=== PATIENT | female | born 1940 | race Caucasian/White ===

== ENCOUNTER 2019-03-14 01:51 | Emergency (ER) | payer MEDICARE, OTHER ==
--- NOTE | 2019-03-14 03:11 | EDM.PDOC ---
ED HPI GENERAL MEDICAL PROBLEM - General Chief Complaint: General Stated Complaint: BLOODY NOSE Time Seen by Provider: 03/14/19 02:50 Source of Information: Reports: Patient, Family, RN History Limitations: Reports: No Limitations - History of Present Illness INITIAL COMMENTS - FREE TEXT/NARRATIVE: 78 yr female presents to ER with nasal bleeding. 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 She has been using kleenex for packing to nares. States she hasn 't had any nasal bleeding until now. She is from [place] and is staying in [place] for the summer months. is with her. Pt has ate today and is taking fluids well. She is sitting on the side of the stretcher in no acute distress. ED ROS GENERAL - Review of Systems Review Of Systems: See Below Constitutional: Reports: No Symptoms HEENT: Reports: Nosebleed. Denies: Sinus Problem, Throat Pain Respiratory: Reports: No Symptoms Cardiovascular: Reports: No Symptoms GI/Abdominal: Reports: No Symptoms Skin: Reports: No Symptoms Neurological: Reports: No Symptoms Psychiatric: Reports: No Symptoms Hematologic/Lymphatic: Reports: Easy Bleeding ED EXAM, GENERAL - Physical Exam Exam: See Below Exam Limited By: No Limitations General Appearance: Alert, No Apparent Distress Ears: Hearing Grossly Normal Nose: Other (epistaxis has stopped, no bleeding from nares upon exam.) Throat/Mouth: Normal Inspection, Normal Lips, Normal Voice, No Airway Compromise Head: Atraumatic, Normocephalic Neck: Supple, Non-Tender, Full Range of Motion Respiratory/Chest: No Respiratory Distress Cardiovascular: Regular Rate, Rhythm Extremities: Other (using walker for ambulation) Neurological: Alert, Oriented, Normal Cognition Psychiatric: Normal Affect, Normal Mood Skin Exam: Warm, Dry, Normal Color Departure - Departure Time of Disposition: 03:02 Disposition: Home, Self-Care 01 Condition: Fair Clinical Impression: Epistaxis - Discharge Information *PRESCRIPTION DRUG MONITORING PROGRAM REVIEWED*: Not Applicable *COPY OF PRESCRIPTION DRUG MONITORING REPORT IN PATIENT JOANNE: Not Applicable Instructions: Nosebleed, [id number] Referrals: PCP,None [Primary Care Provider] - Forms: ED Department Discharge - Assessment/Plan Plan: Epistaxis has stopped upon exam of pt. Recommend to have no sneezing, no blowing of nose for next 24 hour as able. Recommend use of saline mist to nares or vaseline, thin amount for moisture and no use of fingernails into nares. Follow-up in clinic or ER if uncontrolled epistaxis returns.
== END 2019-03-14 03:05 | disposition home or self-care (01) ==
LOC: LB.ED 01:51
DX: R04.0 Epistaxis (principal); Z86.711 Personal history of pulmonary embolism
CPT/HCPCS: 99282